=== PATIENT | female | born 1935 | race Caucasian/White ===

== ENCOUNTER 2017-07-25 07:39 | Emergency (ER) | payer OTHER, MEDICAID ==
[2017-07-25 07:49] VITALS: BP 148/79; BMI 25.8
--- NOTE | 2017-07-25 08:28 | DR.GENAD ---
HPI - PCP Primary Care Physician: RAMÓN Armas - Complaint/Symptoms Chief Complaint Doctors Comments: Patient presents with complaint of nausea and burning of lower extremities. She admits to the burning sensations since 2016 she is being treated but the sensation does not go away. She is also [place] [facility] [place] Chief Complaint:: Pt c/o constant burning pain into both legs rated 9/10. Pt also c/o a few day history of nausea with decreased appetite. Denies vomiting. - Source History Provided: Patient - Mode of Arrival Mode of Arrival: Wheelchair - Timing Onset of Chief Complaint: 07/25/17 PMH - PMH Past Medical History: Yes Past Medical History: COPD, Dyslipidemia, Hypertension Past Surgical History: Yes Surgical History: Appendectomy Past Surgical History Comment: back surgery - Family History History of Family Medical Conditions: Yes Family Medical History: Coronary Artery Disease - Social History Does patient currently use any type of tobacco product: Yes Have you used tobacco products in the last 12 months: Yes Type of Tobacco Use: None Does any household member use tobacco: No Alcohol Use: None Do you use any recreational Drugs:: No Lives With: Spouse Lives Where: Home - infectious screening In the last 2 months have you had wt loss of >10#?: NO Have you had fever, night sweats or hemotysis?: No Have you traveled outside the country in the last 6 months?: No Isolation: Standard ROS - Review of Systems Constitutional: negative: Diaphoresis Eyes: No Symptoms Reported, See HPI ENTM: No Symptoms Reported, See HPI Respiratoy: No Symptoms Reported Cardiovascular: No Symptoms Reported Gastrointestinal/Abdominal: No Symptoms Reported Genitourinary: No Symptoms Reported Neurological: No Symptoms Reported Musculoskeletal: No Symptoms Reported Integumentary: No Symptoms Reported Hematologic/Lymphatic: No Symptoms Reported Endocrine: No Symptoms Reported Psychiatric: No Symptoms Reported All Other Systems: Reviewed and Negative PE - Vital Signs Vitals: Temperature 97.6 F Pulse Rate 106 Respiratory Rate 20 Blood Pressure 148/79 O2 Sat by Pulse Oximetry 97 - General General Appearance: Alert, In No Apparent Distress - Head Head Exam: Normal Inspection, Atraumatic - Eyes Eye exam: Normal Appearance, PERRL, EOMI - ENT ENT Exam: Normal Exam External Ear Exam: Normal External Inspection TM/Canal Exam: Bilateral Normal Nose Exam: Normal Nose Exam Mouth Exam: Normal Inspection Throat Exam: Normal Inspection - Neck Neck Exam: Normal Inspection - Chest Chest Inspection: Normal Inspection, Symmetric Chest Wall Rise - Respiratory Respiratory Exam: Normal Lung Sounds Bilat Respiratory Exam: Bilateral Clear to Auscultation - Cardiovascular Cardiovascular Exam: Regular Rate, Normal Rhythm - Abdominal Exam Abdominal Exam: Normal Inspection, Normal Bowel Sounds Abdominal Tenderness: negative: RUQ, RLQ, LUQ, LLQ, Epigastrium, Suprapubic, Diffuse, Mild, Moderate, Severe, Other - Extremities Extremities Exam: Normal Inspection, Full ROM - Back Back Exam: Normal Inspection, Full ROM - Neurologic Neurological Exam: Alert, Oriented X3, CN II-XII Intact - Psychiatric Psychiatric Exam: Normal Affect - Skin Skin Exam: Warm, Dry, Intact Course - Reevaluation 1st: Improved - Education/Counseling Educated On: Treatment, Diagnosis, Needs for Follow Up (Advised to increase neuronton to 600mg per dose) ROR - Labs Reviewed Result Diagrams: 07/25/17 08:50 07/25/17 08:50 Laboratory: WBC 11.3 X10^3/uL (3.6-10.0) H 07/25/17 08:50 RBC 4.13 X10^6/uL (3.5-5.4) 07/25/17 08:50 Hgb 13.0 g/dL (12.0-16.0) 07/25/17 08:50 Hct 38.3 % (36.0-47.0) 07/25/17 08:50 MCV 92.7 fL (80.0-100.0) 07/25/17 08:50 MCH 31.6 pg (27.0-34.0) 07/25/17 08:50 MCHC 34.0 g/dL (33.0-35.0) 07/25/17 08:50 RDW 13.4 % (11.6-16.5) 07/25/17 08:50 Plt Count 341 X10^3/uL (150.0-450.0) 07/25/17 08:50 MPV 8.2 fL (7.4-11.0) 07/25/17 08:50 Neut % (Auto) 75.9 % (42.0-75.0) H 07/25/17 08:50 Lymph % (Auto) 18.3 % (21.0-51.0) L 07/25/17 08:50 [place] % (Auto) 3.7 % (0.0-13.0) 07/25/17 08:50 Eos % (Auto) 1.1 % (0.9-2.9) 07/25/17 08:50 Baso % (Auto) 1.0 % (0.2-1.0) 07/25/17 08:50 Neut # (Auto) 8.6 x10^3/uL (2.2-4.8) H 07/25/17 08:50 Lymph # (Auto) 2.1 X10^3/uL (1.3-2.9) 07/25/17 08:50 [place] # (Auto) 0.4 x10^3/uL (0.3-0.8) 07/25/17 08:50 Eos # (Auto) 0.1 x10^3/uL (0.0-0.2) 07/25/17 08:50 Baso # (Auto) 0.1 X10^3/uL (0.0-0.1) 07/25/17 08:50 Absolute Nucleated RBC 0.0 /100WBC 07/25/17 08:50 Sodium 139 mmol/L (136-145) 07/25/17 08:50 Corrected Sodium 139 mmol/L (136-145) 07/25/17 08:50 Potassium 4.0 mmol/L (3.5-5.1) 07/25/17 08:50 Chloride 105 mmol/L (98-107) 07/25/17 08:50 Carbon Dioxide 27.8 mmol/L (21-32) 07/25/17 08:50 BUN 21 mg/dL (7-18) H 07/25/17 08:50 Creatinine 1.17 mg/dL (0.55-1.02) H 07/25/17 08:50 Est GFR (MDRD) Af Amer 57 (>60) L 07/25/17 08:50 Est GFR (MDRD) Non-Af 47 (>60) L 07/25/17 08:50 Glucose 118 mg/dL (65-99) H 07/25/17 08:50 Calcium 8.6 mg/dL (8.5-10.1) 07/25/17 08:50 - Diagnosis Discharge Problem: Dehydration, mild Peripheral neuropathy Qualifiers: Peripheral neuropathy type: polyneuropathy, other Qualified Code(s): G62.89 - Other specified polyneuropathies - Discharge Plan Condition: Stable - Follow ups/Referrals Follow ups/Referrals: HALEY DONOVAN [Primary Care Provider] - 3 days - Instructions
[2017-07-25] MEDS ORDERED: ZOFRAN INJ 4 MG VIAL IVP ONE (08:29)
[2017-07-25] MEDS ORDERED: LR 1000 ML IV 1,000 ML IV ONE ×2 (08:29→08:31)
[2017-07-25] MEDS ORDERED: ZOFRAN INJ 4 MG VIAL ONE (08:31)
[2017-07-25] MEDS ORDERED: MORPHINE SULFATE INJ 2 MG INJ IVP ONE (08:38)
[2017-07-25] MEDS ORDERED: MORPHINE SULFATE INJ 2 MG INJ ONE (08:39)
[2017-07-25 08:57] LABS: BASOPHILS # (AUTO) 0.1 X10^3/uL (0.0-0.1); EOSINOPHILS # (AUTO) 0.1 x10^3/uL (0.0-0.2); EOSINOPHILS % (AUTO) 1.1 % (0.9-2.9); HEMATOCRIT 38.3 % (36.0-47.0); LYMPHOCYTES # (AUTO) 2.1 X10^3/uL (1.3-2.9); LYMPHOCYTES % (AUTO) 18.3 % (21.0-51.0); MEAN CORPUSCULAR HEMOGLOBIN 31.6 pg (27.0-34.0); MEAN CORPUSCULAR VOLUME 92.7 fL (80.0-100.0); MEAN PLATELET VOLUME 8.2 fL (7.4-11.0); MONOCYTES # (AUTO) 0.4 x10^3/uL (0.3-0.8); MONOCYTES % (AUTO) 3.7 % (0.0-13.0); NEUTROPHILS # (AUTO) 8.6 x10^3/uL (2.2-4.8); NEUTROPHILS % (AUTO) 75.9 % (42.0-75.0); PLATELET COUNT 341 X10^3/uL (150.0-450.0); RED BLOOD COUNT 4.13 X10^6/uL (3.5-5.4); RED CELL DISTRIBUTION WIDTH 13.4 % (11.6-16.5); WHITE BLOOD COUNT 11.3 X10^3/uL (3.6-10.0)
[2017-07-25 09:21] LABS: CALCIUM 8.6 mg/dL (8.5-10.1); CARBON DIOXIDE 27.8 mmol/L (21-32); CREATININE 1.17 mg/dL (0.55-1.02)
[2017-07-25 10:03] LABS: BILIRUBIN,URINE NEGATIVE (NEGATIVE); BLOOD/HEMOGLOBIN,URINE NEGATIVE (NEGATIVE); GLUCOSE, URINE NEGATIVE (NEGATIVE); KETONES,URINE NEGATIVE (NEGATIVE); LEUKOCYTE ESTERASE ,URINE 1+ (NEGATIVE); NITRITES,URINE POSITIVE (NEGATIVE); PH,URINE 6.5 (5.0 - 8.0); PROTEIN,URINE NEGATIVE (NEGATIVE); UROBILINOGEN,URINE NORMAL (NORMAL)
[2017-07-25 10:12] LABS: APPEARANCE,URINE HAZY (CLEAR); COLOR,URINE YELLOW (YELLOW)
[2017-07-25 10:13] LABS: BACTERIA,URINE 4+ /HPF (NEGATIVE); RBC,URINE NONE SEEN /HPF (NONE SEEN); SQUAMOUS EPITHELIAL CELL,UR MODERATE /HPF (NEGATIVE)
== END 2017-07-25 10:20 | disposition home or self-care (01) ==
LOC: ER 07:57
DX: E86.0 Dehydration (principal); G62.89 Other specified polyneuropathies
CPT/HCPCS: 36415; 80048; 81001; 85025; 96365; 96374; 96375; 99283; A4222; J2270; J2405; J7120

== ENCOUNTER 2023-04-18 07:56 | Inpatient (IN) ==
[2023-04-18 08:11] VITALS: BMI 24.2
--- NOTE | 2023-04-18 08:22 | DR.URIAD ---
HPI Time Seen Time Seen by Provider: 04/18/23 08:22 PCP Primary Care Physician: Catie Castillo Chief Complaint Doctors Comments: Patient has had a cough since 04/12/2023.She saw her Pcp on the and was told that she has pneumonia and was given lev aquin 500mg and prednisone taper. Patient presents today because her cough persists. Patient has a h/o COPD, she did not take her htn meds this am. Patient has been coughing so much that she has pleuritic chest pain. Patient states that she is also has pain in her abd because of the cough and feels weak. Patient denies: fever,n,v,diarrhea,sob. Chief Complaint:: Patient states that she has had a cough since the of this month. She went to her primary on the and they prescribed her pneumonia and steroids. She states that they told her that she had pneumonia but did not do any xrays. They also swabbed her for covid, which was negative. She states that she has been taking the prescribed medication, but the cough has persisted. She states that last night she coughed all night but was unable to cough anything up. She is sore in her abdomen and sides due to coughing. COVID-19 Coronavirus risk:travel/contact w/high risk person: Yes Has patient experienced Coronavirus symptoms: Yes Coronavirus symptoms experienced: Coughing Source History Provided: Patient Mode of Arrival Mode of Arrival: Wheelchair Timing Onset of Chief Complaint: 04/12/23 PMH PMH Past Medical History: Yes Past Medical History: COPD, Dyslipidemia and Hypertension Past Surgical History: Yes Surgical History: Appendectomy, , Cholecystectomy and Hysterectomy Family History History of Family Medical Conditions: Yes Family Medical History: Coronary Artery Disease Social History Does patient currently use any type of tobacco product: No Have you used tobacco products in the last 12 months: No Type of Tobacco Use: None Does any household member use tobacco: No Alcohol Use: None Do you use any recreational Drugs:: No Lives With: Family Lives Where: Home Travel Risk Coronavirus risk:travel/contact w/high risk person: Yes Has patient experienced Coronavirus symptoms: Yes Coronavirus symptoms experienced: Coughing Infectious screening In the last 2 months have you had wt loss of >10#?: NO Have you had fever, night sweats or hemotysis?: No Have you traveled outside the country in the last 6 months?: No Isolation: Droplet ROS Review of Systems Constitutional: Malaise and Weakness Eyes: No Symptoms Reported ENTM: No Symptoms Reported Respiratoy: Dry Cough; negative Short of Breath Cardiovascular: No Symptoms Reported Gastrointestinal/Abdominal: No Symptoms Reported Genitourinary: No Symptoms Reported Neurological: No Symptoms Reported Musculoskeletal: No Symptoms Reported Integumentary: No Symptoms Reported Hematologic/Lymphatic: No Symptoms Reported Endocrine: No Symptoms Reported Psychiatric: No Symptoms Reported All Other Systems: Reviewed and Negative PE Vital Signs Vitals: Vital Signs Temperature 97.6 F Pulse Rate 83 Pulse Rate 72 Pulse Rate 70 Pulse Rate 83 Pulse Rate 75 Pulse Rate 74 Pulse Rate 81 Pulse Rate 76 Pulse Rate 74 Pulse Rate 74 Pulse Rate 70 Pulse Rate 72 Pulse Rate 78 Pulse Rate 80 Pulse Rate 81 Pulse Rate 76 Pulse Rate 118 Pulse Rate 81 Pulse Rate 77 Pulse Rate 80 Pulse Rate 76 Pulse Rate 75 Pulse Rate 101 Pulse Rate 93 Pulse Rate 92 Pulse Rate 106 Pulse Rate 134 Pulse Rate 114 Pulse Rate 123 Pulse Rate 80 Respiratory Rate 17 Respiratory Rate 20 Respiratory Rate 27 Respiratory Rate 16 Respiratory Rate 16 Respiratory Rate 17 Respiratory Rate 29 Respiratory Rate 19 Respiratory Rate 19 Respiratory Rate 17 Respiratory Rate 15 Respiratory Rate 15 Respiratory Rate 17 Respiratory Rate 26 Respiratory Rate 22 Respiratory Rate 17 Respiratory Rate 21 Respiratory Rate 16 Respiratory Rate 18 Respiratory Rate 21 Respiratory Rate 20 Respiratory Rate 15 Respiratory Rate 19 Respiratory Rate 15 Respiratory Rate 13 Respiratory Rate 17 Respiratory Rate 17 Respiratory Rate 19 Respiratory Rate 19 Blood Pressure 147/84 Blood Pressure 164/70 Blood Pressure 171/76 Blood Pressure 174/72 Blood Pressure 167/74 Blood Pressure 132/71 Blood Pressure 146/74 Blood Pressure 140/64 Blood Pressure 149/70 Blood Pressure 151/97 Blood Pressure 145/68 Blood Pressure 157/95 Blood Pressure 169/73 Blood Pressure 151/95 Blood Pressure 157/73 O2 Sat by Pulse Oximetry 96 O2 Sat by Pulse Oximetry 95 O2 Sat by Pulse Oximetry 94 O2 Sat by Pulse Oximetry 95 O2 Sat by Pulse Oximetry 97 O2 Sat by Pulse Oximetry 97 O2 Sat by Pulse Oximetry 98 O2 Sat by Pulse Oximetry 97 O2 Sat by Pulse Oximetry 96 O2 Sat by Pulse Oximetry 96 O2 Sat by Pulse Oximetry 96 O2 Sat by Pulse Oximetry 97 O2 Sat by Pulse Oximetry 96 O2 Sat by Pulse Oximetry 95 O2 Sat by Pulse Oximetry 96 O2 Sat by Pulse Oximetry 95 O2 Sat by Pulse Oximetry 94 O2 Sat by Pulse Oximetry 96 O2 Sat by Pulse Oximetry 97 O2 Sat by Pulse Oximetry 97 O2 Sat by Pulse Oximetry 95 O2 Sat by Pulse Oximetry 95 O2 Sat by Pulse Oximetry 95 O2 Sat by Pulse Oximetry 96 O2 Sat by Pulse Oximetry 94 O2 Sat by Pulse Oximetry 96 General Limitations: No Limitations General Appearance: Alert and In No Apparent Distress Head Head Exam: Normal Inspection Eyes Eye exam: Normal Appearance ENT ENT Exam: Normal Exam External Ear Exam: Normal External Inspection TM/Canal Exam: Bilateral: Normal Nose Exam: Normal Nose Exam Nasal Speculum Exam: Bilateral: Normal Mouth Exam: Normal Inspection Throat Exam: Normal Inspection Neck Neck Exam: Normal Inspection Chest Chest Inspection: Normal Inspection Respiratory Respiratory Exam: Normal Lung Sounds Bilat Respiratory Exam: Bilateral: Clear to Auscultation Cardiovascular Cardiovascular Exam: Regular Rate and Normal Rhythm Abdominal Exam Abdominal Exam: Normal Inspection, Normal Bowel Sounds and Soft Extremeties Extremities Exam: Normal Inspection Back Back Exam: Normal Inspection Neurologic Neurological Exam: Alert and Oriented X3 Psychiatric Psychiatric Exam: Normal Affect and Normal Mood Skin Skin Exam: Warm, Dry, Intact and Normal Color MDM Differential Diagnosis Differential Diagnosis: Influenza A, Influenza B, Pneumonia and URI (Covid- 19,RSV,GA,CHF,PE,electrolyte disorder) COURSE Treatment Treatment: Patient was brought to a monitored . IV access was initiated and labs /test were ordered. Patient's labs revealed a magnesium of 1.4 and patient was given Magnesium 2 g iv , K 2.8 and patient was given 10meq iv. Patient was told that she had pneumonia and has failed outpatient treatment with levaquin. Her Wbc is 22 and the CTA chest revealed Possible RLL inflammation.She received zosyn 4.5mg iv. Patient had a nml lactic acid 1.7 and a mildly elevated crp 5.3. D-dimer was pos but patient did not have a PE. Patient had a labile hr on arrival in ED. She was given metoprolol 5mg iv and a NS 500ml bolus iv and her hr has been stable in the 70's.Patient 's ekg #1 and #2 did not reveal acute ischemic changes. Her troponin #1 and #2 were minimally elevated 62.8/67.1 respectively. Patient was given amlodipine 5mg po ,hctz 12.5mg po,and olmesartan 20mg po for her BP. Discussed case with Dr Goldberg. Patient has been accepted to Dr Goldberg's service for further evaluation. ROR Labs Reviewed 04/18/23 08:35 04/18/23 08:35 Laboratory: WBC 22.7 X10^3/uL (3.6-10.0) H 04/18/23 08:35 RBC 4.09 X10^6/uL (3.5-5.4) 04/18/23 08:35 Hgb 12.3 g/dL (12.0-16.0) 04/18/23 08:35 Hct 36.8 % (36.0-47.0) 04/18/23 08:35 MCV 90.1 fL (80.0-100.0) 04/18/23 08:35 MCH 30.1 pg (27.0-34.0) 04/18/23 08:35 MCHC 33.4 g/dL (33.0-35.0) 04/18/23 08:35 RDW 13.2 % (11.6-16.5) 04/18/23 08:35 Plt Count 332 X10^3/uL (150.0-450.0) 04/18/23 08:35 Plt Count Comment Adequate (ADEQUATE) 04/18/23 08:35 MPV 7.8 fL (7.4-11.0) 04/18/23 08:35 Neut % (Auto) 79.7 % (42.0-75.0) H 04/18/23 08:35 Lymph % (Auto) 15.1 % (21.0-51.0) L 04/18/23 08:35 [place] % (Auto) 4.8 % (0.0-13.0) 04/18/23 08:35 Eos % (Auto) 0.2 % (0.9-2.9) L 04/18/23 08:35 Baso % (Auto) 0.2 % (0.2-1.0) 04/18/23 08:35 Neut # (Auto) 18.1 x10^3/uL (2.2-4.8) H 04/18/23 08:35 Lymph # (Auto) 3.4 X10^3/uL (1.3-2.9) H 04/18/23 08:35 [place] # (Auto) 1.1 x10^3/uL (0.3-0.8) H 04/18/23 08:35 Eos # (Auto) 0.0 x10^3/uL (0.0-0.2) 04/18/23 08:35 Baso # (Auto) 0.0 X10^3/uL (0.0-0.1) 04/18/23 08:35 Absolute Nucleated RBC 0.0 /100WBC 04/18/23 08:35 Total Counted 100 04/18/23 08:35 Neutrophils % (Manual) 80 % (39-76) H 04/18/23 08:35 Lymphocytes % (Manual) 17 % (13-43) 04/18/23 08:35 Monocytes % (Manual) 3 % (4-9) L 04/18/23 08:35 Plt Morphology Comment Normal (NORMAL) 04/18/23 08:35 RBC Morphology Normal (NORMAL) 04/18/23 08:35 D-Dimer 2.46 ug/ml (0.0-0.57) H 04/18/23 08:35 Sodium 145 mmol/L (136-145) 04/18/23 08:35 Corrected Sodium TNP 04/18/23 08:35 Potassium 2.8 mmol/L (3.5-5.1) L* 04/18/23 08:35 Chloride 104 mmol/L (98-107) 04/18/23 08:35 Carbon Dioxide 28.2 mmol/L (21-32) 04/18/23 08:35 BUN 23 mg/dL (7-18) H 04/18/23 08:35 Creatinine 1.16 mg/dL (0.55-1.02) H 04/18/23 08:35 Est GFR (MDRD) Af Amer 57 (>60) L 04/18/23 08:35 Est GFR (MDRD) Non-Af 47 (>60) L 04/18/23 08:35 Glucose 108 mg/dL (65-99) H 04/18/23 08:35 Lactic Acid 1.7 mmol/L (0.4-2.0) 04/18/23 08:35 Calcium 9.0 mg/dL (8.5-10.1) 04/18/23 08:35 Corrected Calcium 9.9 mg/dL (8.5-10.1) 04/18/23 08:35 Magnesium 1.4 mg/dL (2.0-2.9) L 04/18/23 08:35 Total Bilirubin 0.30 mg/dL (0.2-1.0) 04/18/23 08:35 AST 19 Units/L (15-37) 04/18/23 08:35 ALT 16 Units/L (12-78) 04/18/23 08:35 Alkaline Phosphatase 68 Units/L (46-116) 04/18/23 08:35 Creatine Kinase 76 Units/L (26-192) 04/18/23 08:35 Troponin I High Sens 67.1 ng/L (4.0-60.0) H* 04/18/23 10:58 C-Reactive Protein 5.30 mg/L (0-3.0) H 04/18/23 08:35 B-Natriuretic Peptide 400 pg/mL (0-79) H 04/18/23 08:35 Total Protein 6.5 g/dL (6.4-8.2) 04/18/23 08:35 Albumin 2.9 g/dL (3.4-5.0) L 04/18/23 08:35 Globulin 3.6 g/dL (2.5-4.5) 04/18/23 08:35 Albumin/Globulin Ratio 0.8 Ratio (1.1-2.1) L 04/18/23 08:35 Free T4 1.13 ng/dL (0.76-1.46) 04/18/23 08:35 TSH 3rd Generation 0.642 uIU/mL (0.358-3.74) 04/18/23 08:35 Specimen Type Clean catch urine 04/18/23 09:15 Urine Color [place] (YELLOW) 04/18/23 09:15 Urine Appearance Clear (CLEAR) 04/18/23 09:15 Urine pH Cancelled 04/18/23 09:15 Ur Specific [place] Cancelled 04/18/23 09:15 Urine Protein Cancelled 04/18/23 09:15 Urine Glucose (UA) Cancelled 04/18/23 09:15 Urine Ketones Cancelled 04/18/23 09:15 Urine Blood Cancelled 04/18/23 09:15 Urine Nitrite Cancelled 04/18/23 09:15 Urine Bilirubin Cancelled 04/18/23 09:15 Urine Urobilinogen Cancelled 04/18/23 09:15 Ur Leukocyte Esterase Cancelled 04/18/23 09:15 Urine RBC 0-2 /HPF (0-3) 04/18/23 09:15 Urine WBC 3-5 /HPF (0-5) 04/18/23 09:15 Ur Squamous Epith Cells Few /HPF (NEGATIVE) 04/18/23 09:15 Amorphous Sediment 1+ /HPF (NEGATIVE) 04/18/23 09:15 Urine Bacteria 1+ /HPF (NEGATIVE) 04/18/23 09:15 Urine Mucus Rare /HPF (NEGATIVE) 04/18/23 09:15 Ur Culture Indicated? No/not indicated 04/18/23 09:15 SARS-CoV-2 (PCR) Negative (NEGATIVE) 04/18/23 08:29 Influenza Type A (PCR) Negative (NEGATIVE) 04/18/23 08:29 Influenza Type B (PCR) Negative (NEGATIVE) 04/18/23 08:29 RSV (PCR) Negative (NEGATIVE) 04/18/23 08:29 Opioid Opioid Risk Tool Age (Harley box if 16-45): No History of Preadolescent Sexual Abuse: No Total: 0 Total Score Risk Category: Low Risk Copyright: Edmund LORA predicting aberrant behaviors Discharge Plan Diagnosis Discharge Problem: Acute exacerbation of chronic obstructive pulmonary disease, Pneumonia, Malignant hypertension Discharge Plan Patient Disposition: 09 ADMITTED INPATIENT Condition: Stable Prescriptions: No Action levothyroxine 25 MCG tablet 25 mcg PO DAILY Patient Comments: 1 tab po every other day alendronate 70 mg tablet 70 mg PO QWEEK amlodipine 5 mg tablet 5 mg PO QDAY omeprazole 40 mg capsule,delayed release(DR/EC) 40 mg PO BID gabapentin 800 mg tablet 800 mg PO QID hydrochlorothiazide 12.5 mg capsule 12.5 mg PO QDAY estradiol 2 mg tablet 2 mg PO QDAY albuterol sulfate 90 mcg/actuation HFA aerosol inhaler 90 mcg inhalation Q6H PRN buspirone 15 mg tablet 15 mg PO BID olmesartan 20 mg tablet 20 mg PO QDAY rosuvastatin 20 mg tablet 20 mg PO QPM Trelegy Ellipta 100-62.5-25 mcg blister with device 1 puff inhalation QDAY levofloxacin 500 mg tablet 500 mg PO QDAY Rx Instructions: x 10 days started on 04/14/23 methylprednisolone 4 mg tablets,dose pack See Rx Instructions .ROUTE .COMPLEX Rx Instructions: take as directed x 5 days - started on 04/14/23 roflumilast 500 mcg tablet 500 mcg PO QDAY Health Concerns: Post Hospitalization: new medications and changes needed to prevent readmission or further decline. Pt educated and given instructions on all concerns. Plan of Treatment: Continue with present treatment and follow up plan. Pt is to keep follow up appointment as instructed and take medications as ordered. Orders to Discharge Patient Discharge Orders: Transfer (Routine); Ordered 04/18/23 Ordered By: Aishwarya Min Follow ups/Referrals Follow ups/Referrals: HALEY DONOVAN [Primary Care Provider] - 3 days Instructions Stand Alone Forms: Post Hospital Follow Up Care
[2023-04-18] MEDS ORDERED: NS 500 ML IV 500 ML IV ONE (08:32)
[2023-04-18] MEDS: NS 500 ML IV 500 ML IV ONE (08:34)
[2023-04-18] MEDS: CARDIZEM INJ 50 MG VIAL IVP ONE (08:34)
[2023-04-18] MEDS ORDERED: LOPRESSOR INJ 5 MG AMP ONE (08:51)
[2023-04-18] MEDS: LOPRESSOR INJ 5 MG AMP IVP ONE (09:00)
--- NOTE | 2023-04-18 09:05 | EKG ---
Test Reason : tachycardia Blood Pressure : */* mmHG Vent. Rate : 109 BPM Atrial Rate : 109 BPM P-R Int : 124 ms QRS Dur : 76 ms QT Int : 342 ms P-R-T Axes : 32 -15 50 degrees QTc Int : 460 ms Sinus tachycardia with premature atrial complexes or fusion complexes Septal infarct , age undetermined Abnormal ECG No previous ECGs available Confirmed by Jamar Cole ([id number]) on 04/19/2023 12:37:21 PM Referred By: Confirmed By: Jamar Cole
[2023-04-18 09:13] LABS: MEAN CORPUSCULAR VOLUME 90.1 fL (80.0-100.0); MEAN PLATELET VOLUME 7.8 fL (7.4-11.0)
[2023-04-18 09:28] LABS: BASOPHILS % (AUTO) 0.2 % (0.2-1.0); EOSINOPHILS % (AUTO) 0.2 % (0.9-2.9); HEMATOCRIT 36.8 % (36.0-47.0); HEMOGLOBIN 12.3 g/dL (12.0-16.0); LYMPHOCYTES # (AUTO) 3.4 X10^3/uL (1.3-2.9); LYMPHOCYTES % (AUTO) 15.1 % (21.0-51.0); MEAN CORPUSCULAR HEMOGLOBIN 30.1 pg (27.0-34.0); MEAN CORPUSCULAR HGB CONC 33.4 g/dL (33.0-35.0); MONOCYTES # (AUTO) 1.1 x10^3/uL (0.3-0.8); MONOCYTES % (AUTO) 4.8 % (0.0-13.0); NEUTROPHILS # (AUTO) 18.1 x10^3/uL (2.2-4.8); NEUTROPHILS % (AUTO) 79.7 % (42.0-75.0); PLATELET COUNT 332 X10^3/uL (150.0-450.0); RED BLOOD COUNT 4.09 X10^6/uL (3.5-5.4); RED CELL DISTRIBUTION WIDTH 13.2 % (11.6-16.5); WHITE BLOOD COUNT 22.7 X10^3/uL (3.6-10.0)
[2023-04-18 09:37] LABS: ALANINE AMINOTRANSFERASE 16 Units/L (12-78); ALBUMIN 2.9 g/dL (3.4-5.0); ALKALINE PHOSPHATASE 68 Units/L (46-116); ASPARTATE AMINO TRANSFERASE 19 Units/L (15-37); BLOOD UREA NITROGEN 23 mg/dL (7-18); CARBON DIOXIDE 28.2 mmol/L (21-32); CHLORIDE 104 mmol/L (98-107); COR CA(FOR HYPOALB) 9.9 mg/dL (8.5-10.1); CREATINE KINASE 76 Units/L (26-192); CREATININE 1.16 mg/dL (0.55-1.02); GLUCOSE 108 mg/dL (65-99); MAGNESIUM 1.4 mg/dL (2.0-2.9); SODIUM 145 mmol/L (136-145); TOTAL PROTEIN 6.5 g/dL (6.4-8.2); eGFR NON BLACK RACES 47 (>60)
[2023-04-18 09:40] LABS: APPEARANCE,URINE CLEAR (CLEAR); BACTERIA,URINE 1+ /HPF (NEGATIVE); COLOR,URINE ORANGE (YELLOW); RBC,URINE 0-2 /HPF (0-3); SQUAMOUS EPITHELIAL CELL,UR FEW /HPF (NEGATIVE)
[2023-04-18 09:41] LABS: FREE T4 (FREE THYROXINE) 1.13 ng/dL (0.76-1.46); TSH (3RD GENERATION) 0.642 uIU/mL (0.358-3.74)
[2023-04-18 09:45] LABS: POTASSIUM 2.8 mmol/L (3.5-5.1)
--- NOTE | 2023-04-18 09:47 | RAD ---
EXAM: Portable AP chest HISTORY: Cough COMPARISON: 12/25/2020 FINDINGS: Heart size within normal limits with no definite pulmonary infiltrate, pneumonia or pleural fluid. The retrocardiac left base and diaphragm are partly obscured by the heart. IMPRESSION: No definite abnormality. If symptoms persist, recommend standard PA and lateral views to better mauricio luate the lower lobes. THIS IS AN ELECTRONICALLY VERIFIED FINAL REPORT 04/18/2023 9:44 AM - Electronically signed by Guillaume Nicholas MD
[2023-04-18 09:50] LABS: PLATELET MORPHOLOGY COMMENT NORMAL (NORMAL)
[2023-04-18] MEDS ORDERED: NS 100 ML IV 100 ML ONE ×2 (09:57→21:07)
[2023-04-18] MEDS ORDERED: ZOSYN VIAL 4.5 GRAMS IV ONE (09:57)
[2023-04-18] MEDS ORDERED: K-RIDER 10 MEQ/100 ML WATER 10 MEQ/100 ML BAG IV ONE (09:57)
[2023-04-18] MEDS ORDERED: MAGNESIUM SULFATE 1 GRAM/100 mL PREMIX 1 G/100 ML BAG IV ONE (09:57)
[2023-04-18] MEDS ORDERED: NS 1,000 ML IV 1,000 ML ONE (10:01)
[2023-04-18] MEDS: K-RIDER 10 MEQ/100 ML WATER 10 MEQ/100 ML BAG IV SCH (10:14)
[2023-04-18] MEDS: ZOSYN VIAL 4.5 GRAMS 4.5 G in NS 100 ML IV 100 ML IV SCH (10:14)
[2023-04-18] MEDS: MAGNESIUM SULFATE 1 GRAM/100 mL PREMIX 1 G/100 ML BAG IV SCH (10:15)
[2023-04-18] MEDS: NS 1,000 ML IV 1,000 ML IV ONE (10:15)
--- NOTE | 2023-04-18 11:20 | EKG ---
Test Reason : palpitatons Blood Pressure : */* mmHG Vent. Rate : 78 BPM Atrial Rate : 78 BPM P-R Int : 130 ms QRS Dur : 76 ms QT Int : 358 ms P-R-T Axes : 51 -4 61 degrees QTc Int : 408 ms Sinus rhythm with occasional premature ventricular complexes Otherwise normal ECG When compared with ECG of 18-APR-2023 08:25, (Unconfirmed) fusion complexes are no longer present Criteria for Septal infarct are no longer present QT has shortened Confirmed by Jamar Cole ([id number]) on 04/19/2023 12:36:57 PM Referred By: Confirmed By: Jamar Cole
--- NOTE | 2023-04-18 13:00 | CT ---
EXAM:CTA chestHISTORY:Cough. Evaluate for infection versus PE.COMPARISON:Chest one view performed today.TECHNIQUE:Multiple axial images of the chest were obtained from the thoracic inlet to the upper abdomen after the administration of IV contrast. 3D reconstructions utilizing axial MIPS imaging was performed and reviewed. Dose reduction techniques including Automated Exposure Control (AEC) and adjustment of mA and kV were utilized.FINDINGS:PULMONARY ARTERIES: No evidence of pulmonary emboli.THORACIC AORTA: Normal in caliber and moderately calcified.HEART: Moderate coronary artery calcification. No other significant abnormality.MEDIASTINUM: Nonspecific scattered shotty mediastinal lymph nodes. No other significant abnormality.LUNGS: Biapical scarring with left basilar atelectasis versus scarring. No other significant abnormality.UPPER ABDOMEN: No acute findings. Moderate atherosclerosis with bilateral renal cysts.BONES: No significant abnormality.ADDITIONAL FINDINGS:None.IMPRESSION:1. No CT evidence of pulmonary emboli.2. Evidence of an acute infectious process involving the chest.3. Likely reactive nonspecific shotty mediastinal lymph nodes with additional chronic changes as above.THIS IS AN ELECTRONICALLY VERIFIED FINAL REPORT04/18/2023 12:56 PM - Electronically signed by Wayne Ghotra MD
[2023-04-18] MEDS ORDERED: NORVASC TAB 5 MG ONE (14:03)
[2023-04-18] MEDS: NORVASC TAB 5 MG PO ONE (14:10)
[2023-04-18] MEDS: MAGNESIUM SULFATE 1 GRAM/100 mL PREMIX 1 G/100 ML BAG IV ONE (16:01)
[2023-04-18] MEDS: PATIENT'S HOME MEDICATION (Gabapentin 800 mg tablet) PO SCH (19:15)
[2023-04-18] MEDS: LOVENOX INJ 40 MG SYR SC SCH (19:18)
[2023-04-18] MEDS: Atrovent NEB TX 0.02% NEB SCH (20:23)
[2023-04-18] MEDS: BUSPAR PO SCH (20:30)
[2023-04-18] MEDS: CRESTOR TAB 10 MG PO SCH (20:31)
[2023-04-18] MEDS: NEURONTIN CAP 300 MG PO SCH (20:31)
[2023-04-18] MEDS: PriLOSEC PO SCH (20:32)
[2023-04-18] MEDS: MAG-OX TAB PO SCH (20:42)
[2023-04-18] MEDS: K-DUR TAB 20 MEQ PO SCH (20:42)
[2023-04-18] MEDS: MICRO K EXTEN CAP 10 MEQ PO SCH (21:15)
[2023-04-18] MEDS: ZOSYN VIAL 3.375 GRAMS 3.375 G in NS 100 ML IV 100 ML IV SCH (21:16)
[2023-04-19 05:03] LABS: BASOPHILS # (AUTO) 0.1 X10^3/uL (0.0-0.1); BASOPHILS % (AUTO) 0.4 % (0.2-1.0); EOSINOPHILS # (AUTO) 0.2 x10^3/uL (0.0-0.2); EOSINOPHILS % (AUTO) 1.7 % (0.9-2.9); HEMATOCRIT 34.9 % (36.0-47.0); HEMOGLOBIN 11.7 g/dL (12.0-16.0); LYMPHOCYTES # (AUTO) 1.8 X10^3/uL (1.3-2.9); LYMPHOCYTES % (AUTO) 13.7 % (21.0-51.0); MEAN CORPUSCULAR HEMOGLOBIN 30.1 pg (27.0-34.0); MEAN CORPUSCULAR HGB CONC 33.6 g/dL (33.0-35.0); MEAN CORPUSCULAR VOLUME 89.7 fL (80.0-100.0); MEAN PLATELET VOLUME 7.9 fL (7.4-11.0); MONOCYTES # (AUTO) 0.7 x10^3/uL (0.3-0.8); MONOCYTES % (AUTO) 5.2 % (0.0-13.0); NEUTROPHILS # (AUTO) 10.3 x10^3/uL (2.2-4.8); PLATELET COUNT 314 X10^3/uL (150.0-450.0); RED BLOOD COUNT 3.89 X10^6/uL (3.5-5.4); RED CELL DISTRIBUTION WIDTH 13.3 % (11.6-16.5); WHITE BLOOD COUNT 13.1 X10^3/uL (3.6-10.0)
[2023-04-19 05:18] LABS: ALANINE AMINOTRANSFERASE 14 Units/L (12-78); ALBUMIN 2.6 g/dL (3.4-5.0); ALKALINE PHOSPHATASE 65 Units/L (46-116); ASPARTATE AMINO TRANSFERASE 15 Units/L (15-37); BLOOD UREA NITROGEN 15 mg/dL (7-18); CALCIUM 8.1 mg/dL (8.5-10.1); CARBON DIOXIDE 27.1 mmol/L (21-32); CHLORIDE 106 mmol/L (98-107); COR CA(FOR HYPOALB) 9.2 mg/dL (8.5-10.1); CREATININE 0.94 mg/dL (0.55-1.02); GLUCOSE 89 mg/dL (65-99); POTASSIUM 3.7 mmol/L (3.5-5.1); SODIUM 143 mmol/L (136-145); TOTAL PROTEIN 5.9 g/dL (6.4-8.2); eGFR NON BLACK RACES 60 (>60)
[2023-04-19] MEDS: PROVENTIL NEB TX 0.083% 2.5MG/ 3ML NEB SCH (05:25)
--- NOTE | 2023-04-19 06:17 | RAD ---
EXAM:CHEST, 1 VIEWHISTORY:SOB;COMPARISON:Prior study or studies were utilized for comparison during interpretation with the most relevant dated 04/18/2023TECHNIQUE:CHEST, 1 VIEWFINDINGS:Chest:Lines and tubes: Cardiac leads overlie the chest.Mediastinum: Cardiac and mediastinal shadow is within normal limits for size and contour.Pulmonary vessels: No pulmonary vascular congestion.Lung patel: No suspicious airspace opacity.Pleura: No effusion. No pneumothorax.Bones and soft tissues: No acute osseous or soft tissue abnormality.IMPRESSION:1. No acute cardiopulmonary abnormalityTHIS IS AN ELECTRONICALLY VERIFIED FINAL REPORT04/19/2023 6:15 AM - Electronically signed by Mateo Vo MD
[2023-04-19] MEDS ORDERED: CONSULT PHARMACY - POTASSIUM & MAGNESIUM XX SCH (07:00)
[2023-04-19] MEDS ORDERED: HYDROCHLOROTHIAZIDE 12.5 MG CAP PO SCH (09:00)
[2023-04-19] MEDS ORDERED: OLMESARTAN 20 MG PO SCH (09:00)
[2023-04-19] MEDS: BENICAR PO SCH (09:57)
[2023-04-19] MEDS: LEVAQUIN PREMIX IV 500 MG 500 MG/100 ML BAG IV SCH (09:57)
[2023-04-19] MEDS: SYNTHROID 25 mcg TAB PO SCH (09:59)
[2023-04-19] MEDS: K-DUR TAB 20 MEQ PO SCH (09:59)
[2023-04-19] MEDS: ESTRACE PO SCH (10:00)
[2023-04-19] MEDS: NORVASC TAB 5 MG PO SCH (10:06)
[2023-04-19] MEDS: DALIRESP PO SCH (10:06)
[2023-04-19] MEDS: HYDROCHLOROTHIAZIDE 12.5 MG CAP PO SCH (10:10)
[2023-04-19] MEDS: PULMICORT NEB TX 0.5 MG NEB SCH (10:28)
--- NOTE | 2023-04-19 14:52 | DR.H&P ---
H&P - History & Physical for Day of: H&P Date: 04/18/23 - Chief Complaint Chief Complaint: COUGH, SHORTNESS OF BREATH, WEAKNESS - History of Present Illness History of Present Illness: IS A 88 YEAR OLD PATIENT OF . SHE PRESENTED TO THE ER WITH COMPLAINTS OF COUGH, SHORTNESS OF BREATH, AND WEAKNESS. PATIENT REPORTS THAT SHE HAS BEEN TAKING LEVAQUIN 500MG DAILY AND PREDNISONE TAPER FOR TREATMENT OF PNEUMONIA. SHE DENIES IMPROVEMENT IN SYMPTOMS DESPITE COMPLIANCE WITH MEDS. ADDITIONALLY, SHE COMPLAINS OF ABDOMINAL PAIN AND FLANK PAIN DUE TO COUGHING ALL NIGHT. SHE REPORTS THAT COUGH HAS BEEN NON- PRODUCTIVE. HER MEDICAL HX INCLUDES: COPD, DYSLIPIDEMIA, HTN, APPENDECTOMY, C- SECTION, CHOLECYSTECTOMY, HYSTERECTOMY. ON ARRIVAL TO THE HOSPITAL, VITALS WERE: 97.6-80-19-96%-157/73. LABS WERE OBTAINED. WBC 22.7, RBC 4.09, HGB 12.3, HCT 36.8, PLT COUNT 332, D-DIMER 2.46, SODIUM 145, POTASSIUM 2.8, BUN 23, CREATININE 1.16, GLUCOSE 108, LACTIC ACID 1.7, MAGNESIUM 1.4, TOTLA BILI 0.30, AST 19, ALT 16, ALK PHOS 68, CREATINE KINASE 76, TROPONIN 62.8, CRP 5.30, BNP 400, TOTAL PROTEIN 6.5, ALBUMIN 2.9. A URINALYSIS WAS OBTAINED AND REVEALED: WBC 3-5, RBC 0-2, BACTERIA 1+. COVID, INFLUENZA, AND RSV NEGATIVE. RESPIRATORY VIRAL PANEL PENDING. BLOOD CULTURES WERE SET UP. EKG WAS OBTAINED AND REVEALED: SINUS TACHYCARDIA WITH PREMATURE ATRIAL COMPLEXES. HR 109 BPM. A CHEST XRAY WAS OBTAINED AND REVEALED: No definite abnormality. If symptoms persist, recommend standard PA and lateral views to better evaluate the lower lobes. A CHEST CTA WAS OBTAINED AND REVEALED: 1.No CT evidence of pulmonary emboli. 2. Evidence of an acute infectious process involving the chest. 3. Likely reactive nonspecific shotty mediastinal lymph nodes. WHILE IN THE ER, SHE WAS NOTED TO GO INTO ATRIAL FIBRILLATION WITH HR 115-160. HE WAS GIVEN METOPROLOL 5MG IV X 1 DOSE. IN THE ER, SHE WAS ALSO GIVEN A NORMAL SALINE BOLUS, LOPRESSOR 5MG IV X 1, NORVASC 5MG PO X 1, POTASSIUM 20MEQ PO X 1, AND MAGNESIUM 800MG PO X 2 DOSES. SHE WAS ADMITTED TO THE HOSPITAL INPATIENT STATUS FOR FURTHER EVALUATION AND TREATMENT OF COPD EXACERBATION, PNEUMONIA, MALIGNANT HTN. ON ADMISSION, SHE WAS STARTED ON LEVAQUIN 500MG IV DAILY, ZOSYN 3.375 IV TID, LOVENOX 40MG SC DAILY, ALBUTEROL NEBS Q6H, PULMICORT NEBS BID, POTASSIUM AND MAGNESIUM REPLACEMENT. HER HOME MEDICATIONS OF NORVASC, BUSPAR, ESTRACE, NEURONTIN, HCTZ, SYNTHROID, BENICAR, PRILOSEC, DALIRESP, AND CRESTOR WERE RESUMED. WE WILL REPEAT SERIAL CARDIAC ENZYMES AND EKGS. OTHERWISE, WE WILL FOLLOW-UP WITH AM LABS AND CHEST XRAY AND CONTINUE TO MONITOR. TIME SPENT ON CLINICAL ASSESSMENT, REVIEWING LABS AND IMAGING, DECISION MAKING, AND DOCUMENTATION GREATER THAN 75 MINUTES. - Past Medical History Past Medical History: Hypertension, Dyslipidemia, COPD - Past Surgical History Surgical History: Appendectomy, Hysterectomy - Family History Family Medical History: Hypertension - Social History Does patient currently use any type of tobacco product: No Have you used tobacco products in the last 12 months: No Type of Tobacco Use: None Does any household member use tobacco: No Alcohol Use: None Drug Use: None - Review of Systems Constitutional: Weakness Eyes: No Symptoms Reported ENT: No Symptoms Reported Respiratory: Cough, Shortness of Breath Cardiovascular: No Symptoms Reported Gastrointestinal: Abdominal Pain, Other (FLANK PAIN ) Genitourinary: No Symptoms Reported Musculoskeletal: No Symptoms Reported Skin: No Symptoms Reported Neurological: Weakness - Physical Exam Vital Signs: Vital Signs Temperature 99 F Temperature 98.0 F Temperature 98.2 F Pulse Rate 90 Pulse Rate 84 Pulse Rate 83 Pulse Rate 79 Pulse Rate 86 Pulse Rate 82 Pulse Rate 83 Respiratory Rate 20 Respiratory Rate 17 Respiratory Rate 17 Respiratory Rate 16 Respiratory Rate 18 Respiratory Rate 16 Respiratory Rate 16 Blood Pressure 128/90 Blood Pressure 134/63 Blood Pressure 166/70 Blood Pressure 163/70 Blood Pressure 160/67 Blood Pressure 174/77 O2 Sat by Pulse Oximetry 98 O2 Sat by Pulse Oximetry 98 O2 Sat by Pulse Oximetry 98 O2 Sat by Pulse Oximetry 97 O2 Sat by Pulse Oximetry 96 O2 Sat by Pulse Oximetry 98 O2 Sat by Pulse Oximetry 96 O2 Sat by Pulse Oximetry 96 Oriented: Normal Eyes: Normal Ear: Normal Nose: Normal Throat: Normal Respiratory: Wheezes Throughout Cardiovascular: Normal : Normal Auscultation: Bowel Sounds: Normal Palpation: Normal Tenderness: Normal Skin: Normal Musculoskeletal: Normal Psychiatric: Normal Mood Description: Calm Affect: Normal Speech Pattern: Clear - Assessment/Plan (1) Pneumonia Qualifiers: Pneumonia type: due to unspecified organism Laterality: unspecified laterality Lung location: unspecified part of lung Qualified Code(s): J18.9 - Pneumonia, unspecified organism Status: Acute Plan: ADMIT, SUPPLEMENTAL OXYGEN, LEVAQUIN 500MG IV DAILY, ZOSYN 3.375 IV TID, LOVENOX 40MG SC DAILY, ALBUTEROL NEBS Q6H, PULMICORT NEBS BID, POTASSIUM AND MAGNESIUM REPLACEMENT. HER HOME MEDICATIONS OF NORVASC, BUSPAR, ESTRACE, NEURONTIN, HCTZ, SYNTHROID, BENICAR, PRILOSEC, DALIRESP, AND CRESTOR WERE RESUMED. (2) Acute exacerbation of chronic obstructive pulmonary disease Status: Acute (3) Malignant hypertension Status: Acute (4) Dyslipidemia Status: Chronic (5) HTN (hypertension) Qualifiers: Hypertension type: primary hypertension Qualified Code(s): I10 - Essential (primary) hypertension Status: Chronic - Allergies Allergies/Adverse Reactions: Allergies Allergy/AdvReac Type Severity Reaction Status Date / Time latex Allergy Verified 04/18/23 08:29 - Medications Home Medications: Home Medications Medication Instructions Recorded Confirmed levothyroxine 25 mcg tablet 25 mcg PO DAILY 07/25/17 04/18/23 albuterol sulfate 90 mcg/actuation 90 mcg inhalation Q6H PRN 09/15/22 04/18/23 aerosol inhaler alendronate 70 mg tablet 70 mg PO QWEEK 09/15/22 04/18/23 amlodipine 5 mg tablet 5 mg PO QDAY 09/15/22 04/18/23 buspirone 15 mg tablet 15 mg PO BID 09/15/22 04/18/23 estradiol 2 mg tablet 2 mg PO QDAY 09/15/22 04/18/23 fluticasone fur. 100 mcg-umeclid 1 puff inhalation QDAY 09/15/22 04/18/23 62.5 mcg-vilant 25 mcg inhalat.powder (Trelegy Ellipta) gabapentin 800 mg tablet 800 mg PO QID 09/15/22 04/18/23 hydrochlorothiazide 12.5 mg capsule 12.5 mg PO QDAY 09/15/22 04/18/23 olmesartan 20 mg tablet 20 mg PO QDAY 09/15/22 04/18/23 omeprazole 40 mg capsule,delayed 40 mg PO BID 09/15/22 04/18/23 release rosuvastatin 20 mg tablet 20 mg PO QPM 09/15/22 04/18/23 levofloxacin 500 mg tablet 500 mg PO QDAY 04/18/23 04/18/23 methylprednisolone 4 mg tablets in See Rx Instructions .Route .COMPLEX 04/18/23 04/18/23 a dose pack roflumilast 500 mcg tablet 500 mcg PO QDAY 04/18/23 04/18/23
[2023-04-19] MEDS: CONSULT PHARMACY - POTASSIUM & MAGNESIUM XX SCH (18:52)
[2023-04-19] MEDS: Atrovent NEB TX 0.02% ONE (18:52)
[2023-04-19] MEDS: NS 1,000 ML IV 1,000 ML ONE (18:52)
[2023-04-20 05:28] LABS: BASOPHILS % (AUTO) 0.2 % (0.2-1.0); EOSINOPHILS # (AUTO) 0.2 x10^3/uL (0.0-0.2); EOSINOPHILS % (AUTO) 1.7 % (0.9-2.9); HEMATOCRIT 35.2 % (36.0-47.0); HEMOGLOBIN 11.8 g/dL (12.0-16.0); LYMPHOCYTES # (AUTO) 1.8 X10^3/uL (1.3-2.9); LYMPHOCYTES % (AUTO) 12.4 % (21.0-51.0); MEAN CORPUSCULAR HEMOGLOBIN 30.2 pg (27.0-34.0); MEAN CORPUSCULAR HGB CONC 33.4 g/dL (33.0-35.0); MEAN CORPUSCULAR VOLUME 90.3 fL (80.0-100.0); MEAN PLATELET VOLUME 7.7 fL (7.4-11.0); MONOCYTES # (AUTO) 0.6 x10^3/uL (0.3-0.8); NEUTROPHILS # (AUTO) 11.6 x10^3/uL (2.2-4.8); NEUTROPHILS % (AUTO) 81.7 % (42.0-75.0); PLATELET COUNT 320 X10^3/uL (150.0-450.0); RED CELL DISTRIBUTION WIDTH 12.9 % (11.6-16.5); WHITE BLOOD COUNT 14.1 X10^3/uL (3.6-10.0)
[2023-04-20 05:45] LABS: ALANINE AMINOTRANSFERASE 13 Units/L (12-78); ALBUMIN 2.6 g/dL (3.4-5.0); ALKALINE PHOSPHATASE 63 Units/L (46-116); ASPARTATE AMINO TRANSFERASE 10 Units/L (15-37); BLOOD UREA NITROGEN 13 mg/dL (7-18); CALCIUM 8.4 mg/dL (8.5-10.1); CARBON DIOXIDE 25.9 mmol/L (21-32); CHLORIDE 108 mmol/L (98-107); COR CA(FOR HYPOALB) 9.5 mg/dL (8.5-10.1); CREATININE 1.04 mg/dL (0.55-1.02); GLUCOSE 99 mg/dL (65-99); POTASSIUM 4.1 mmol/L (3.5-5.1); SODIUM 144 mmol/L (136-145); TOTAL PROTEIN 6.1 g/dL (6.4-8.2); eGFR NON BLACK RACES 53 (>60)
--- NOTE | 2023-04-20 07:28 | RAD ---
EXAM:CHEST, 1 VIEWHISTORY:SOB; COPD, HTN SX: APPY, AYSHA, CSECTION, HYSTCOMPARISON:04/19/2023.TECHNIQUE:AP view of the chestFINDINGS:The cardiac and mediastinal contours are normal in size. Limited evaluation of the lung in the left lung base. Otherwise no consolidation or segmental lung collapse. Lungs are hyperexpanded. No discernible pleural effusion or pneumothorax.IMPRESSION:Hyperexpanded lungs suggests COPD. If there is clinical need to evaluate for pulmonary nodules, CT chest is recommended.THIS IS AN ELECTRONICALLY VERIFIED FINAL REPORT04/20/2023 7:25 AM - Electronically signed by Preston Conn MD
[2023-04-20] MEDS: NEURONTIN CAP 100 MG PO SCH (08:36)
[2023-04-20] MEDS: LEVAQUIN PREMIX IV 250 MG 250 MG/50 ML BAG IV SCH (08:37)
[2023-04-20] MEDS ORDERED: CONSULT PHARMACY - POTASSIUM & MAGNESIUM XX SCH (14:00)
[2023-04-21 05:40] VITALS: RESP 20
[2023-04-21 06:00] LABS: BASOPHILS % (AUTO) 0.3 % (0.2-1.0); EOSINOPHILS # (AUTO) 0.3 x10^3/uL (0.0-0.2); HEMOGLOBIN 11.4 g/dL (12.0-16.0); LYMPHOCYTES # (AUTO) 1.7 X10^3/uL (1.3-2.9); LYMPHOCYTES % (AUTO) 13.4 % (21.0-51.0); MEAN CORPUSCULAR HEMOGLOBIN 30.3 pg (27.0-34.0); MEAN CORPUSCULAR HGB CONC 33.5 g/dL (33.0-35.0); MEAN CORPUSCULAR VOLUME 90.5 fL (80.0-100.0); MEAN PLATELET VOLUME 7.5 fL (7.4-11.0); MONOCYTES # (AUTO) 0.5 x10^3/uL (0.3-0.8); MONOCYTES % (AUTO) 3.8 % (0.0-13.0); NEUTROPHILS # (AUTO) 10.4 x10^3/uL (2.2-4.8); NEUTROPHILS % (AUTO) 80.5 % (42.0-75.0); PLATELET COUNT 301 X10^3/uL (150.0-450.0); RED BLOOD COUNT 3.76 X10^6/uL (3.5-5.4); RED CELL DISTRIBUTION WIDTH 13.6 % (11.6-16.5); WHITE BLOOD COUNT 12.9 X10^3/uL (3.6-10.0)
--- NOTE | 2023-04-21 06:06 | RAD ---
EXAM:CHEST, 1 VIEWHISTORY:SOB; HTN, COPD SX: HYST, APPY, AYSHA, CSECTIONCOMPARISON:04/20/2023FINDINGS:Th e cardiomediastinal silhouette is stable.No acute airspace disease. No pneumothorax or effusion.No acute osseous abnormality.IMPRESSION:No acute cardiopulmonary disease.THIS IS AN ELECTRONICALLY VERIFIED FINAL REPORT04/21/2023 6:03 AM - Electronically signed by Carlos Banks MD
[2023-04-21 06:17] LABS: ALANINE AMINOTRANSFERASE 13 Units/L (12-78); ALBUMIN 2.7 g/dL (3.4-5.0); ALKALINE PHOSPHATASE 62 Units/L (46-116); ASPARTATE AMINO TRANSFERASE 14 Units/L (15-37); BLOOD UREA NITROGEN 11 mg/dL (7-18); CALCIUM 8.4 mg/dL (8.5-10.1); CHLORIDE 108 mmol/L (98-107); COR CA(FOR HYPOALB) 9.4 mg/dL (8.5-10.1); CREATININE 1.09 mg/dL (0.55-1.02); GLUCOSE 108 mg/dL (65-99); POTASSIUM 3.7 mmol/L (3.5-5.1); SODIUM 144 mmol/L (136-145); TOTAL PROTEIN 6.2 g/dL (6.4-8.2); eGFR NON BLACK RACES 50 (>60)
[2023-04-21] MEDS ORDERED: CONSULT PHARMACY - POTASSIUM & MAGNESIUM XX SCH (07:00)
[2023-04-21] MEDS: K-DUR TAB 20 MEQ PO SCH (08:54)
[2023-04-21 09:40] VITALS: BP 156/70; PULSE 84; TEMP 98.5; O2SAT 96
--- NOTE | 2023-04-21 09:58 | PCM.PROG ---
Progress Note - Progress Note for Day of Date of Exam: 04/20/23 - Subjective Subjective: IS CURRENTLY INPATIENT STATUS FOR TREATMENT OF PNEUMONIA, COPD EXACERBATION, SHORTNESS OF BREATH, AND GENERALIZED WEAKNESS. TODAY, SHE IS ALERT AND ORIENTED, SITTING UP IN BED ON MORNING ROUNDS. SHE CONTINUES TO COMPLAIN OF COUGH AND SHORTNESS OF BREATH, BUT REPORTS SLIGHT IMPROVEMENT IN SYMPTOMS SINCE ADMISSION. COUGH HAS BEEN NON-PRODUCTIVE. ON EXAMINATION, HEART IS REGULAR IN RATE AND RHYTHM. BILATERAL LUNGS ARE NOTED WITH EXPIRATORY WHEEZING. ABDOMEN IS ROUND, SOFT, AND NON-TENDER WITH NORMAL BOWEL SOUNDS NOTED IN ALL QUADRANTS. GOOD RANGE OF MOTION NOTED TO UPPER AND LOWER EXTREMITIES WITH NO EDEMA NOTED. HER VITALS THIS MORNING ARE: 98.1-89-27-94%-131/67. SHE IS ON ROOM AIR. LABS WERE OBTAINED. WBC 14.1, RBC 3.90, HGB 11.8, HCT 35.2, PLT COUNT 320, SODIUM 144, POTASSIUM 4.1, CHLORIDE 108, BUN 13, CREATININE 1.04, GLUCOSE 99, CALCIUM 8.4, TOTAL BILI 0.70, AST 10, ALT 13, ALK PHOS 63, TOTAL PROTEIN 6.1, ALBUMIN 2.6. BLOOD CULTURES ARE PENDING. CHEST XRAY WAS OBTAINED AND REVEALED: Hyperexpanded lungs suggests COPD. SHE IS CURRENTLY RECEIVING LEVAQUIN 500MG IV DAILY, ZOSYN 3.375 IV TID, LOVENOX 40MG SC DAILY, ALBUTEROL NEBS Q6H, PULMICORT NEBS BID, POTASSIUM AND MAGNESIUM REPLACEMENT. HER HOME MEDICATIONS OF NORVASC, BUSPAR, ESTRACE, NEURONTIN, HCTZ, SYNTHROID, BENICAR, PRILOSEC, DALIRESP, AND CRESTOR WERE RESUMED. WE WILL CONTINUE WITH CURRENT PLAN OF CARE TODAY. OTHERWISE, WE WILL FOLLOW-UP WITH AM LABS AND CHEST XRAY AND CONTINUE TO MONITOR. TIME SPENT ON CLINICAL ASSESSMENT, REVIEWING LABS AND IMAGING, DECISION MAKING, AND DOCUMENTATION GREATER THAN 45 MINUTES. - Past Medical Family Social History Past Med/Fam/Surg Hx: No changes since H&P Allergies: Allergies latex Allergy (Verified 04/18/23 08:29) - Review of Systems ROS: No change since H&P - Vital Signs and I&O's Vital Signs: Vital Signs Temperature 98.5 F Temperature 98.1 F Pulse Rate [Right] 84 Pulse Rate [Right] 79 Respiratory Rate 20 Respiratory Rate 20 Blood Pressure [Right Arm] 156/70 Blood Pressure [Right Arm] 154/83 O2 Sat by Pulse Oximetry 96 O2 Sat by Pulse Oximetry 98 Intake and Output: Intake & Output 04/18/23 04/19/23 04/20/23 04/21/23 11:59 11:59 11:59 11:59 Intake Total 1210 / 1210 2319 / 2319 1058 / 1058 Output Total 150 / 150 Balance 1210 / 1210 2169 / 2169 1058 / 1058 - Physical Exam Oriented: Normal Eyes: Normal Ear: Normal Nose: Normal Throat: Normal Respiratory: Generalized, Wheezes Cardiovascular: Normal : Normal Auscultation: Bowel Sounds: Normal Palpation: Normal Tenderness: Normal Skin: Normal Musculoskeletal: Normal Psychiatric: Normal Mood Description: Calm Affect: Normal Speech Pattern: Clear, Appropriate - Laboratory and Diagnostics Result Diagrams: 04/21/23 05:41 04/21/23 05:41 Labs: 04/18/23 08:45 Blood Blood Culture - Preliminary 04/18/23 08:35 Blood Blood Culture - Preliminary Laboratory WBC 12.9 X10^3/uL (3.6-10.0) H 04/21/23 05:41 RBC 3.76 X10^6/uL (3.5-5.4) 04/21/23 05:41 Hgb 11.4 g/dL (12.0-16.0) L 04/21/23 05:41 Hct 34.0 % (36.0-47.0) L 04/21/23 05:41 MCV 90.5 fL (80.0-100.0) 04/21/23 05:41 MCH 30.3 pg (27.0-34.0) 04/21/23 05:41 MCHC 33.5 g/dL (33.0-35.0) 04/21/23 05:41 RDW 13.6 % (11.6-16.5) 04/21/23 05:41 Plt Count 301 X10^3/uL (150.0-450.0) 04/21/23 05:41 Plt Count Comment Adequate (ADEQUATE) 04/18/23 08:35 MPV 7.5 fL (7.4-11.0) 04/21/23 05:41 Neut % (Auto) 80.5 % (42.0-75.0) H 04/21/23 05:41 Lymph % (Auto) 13.4 % (21.0-51.0) L 04/21/23 05:41 [place] % (Auto) 3.8 % (0.0-13.0) 04/21/23 05:41 Eos % (Auto) 2.0 % (0.9-2.9) 04/21/23 05:41 Baso % (Auto) 0.3 % (0.2-1.0) 04/21/23 05:41 Neut # (Auto) 10.4 x10^3/uL (2.2-4.8) H 04/21/23 05:41 Lymph # (Auto) 1.7 X10^3/uL (1.3-2.9) 04/21/23 05:41 [place] # (Auto) 0.5 x10^3/uL (0.3-0.8) 04/21/23 05:41 Eos # (Auto) 0.3 x10^3/uL (0.0-0.2) H 04/21/23 05:41 Baso # (Auto) 0.0 X10^3/uL (0.0-0.1) 04/21/23 05:41 Absolute Nucleated RBC 0.0 /100WBC 04/21/23 05:41 Total Counted 100 04/18/23 08:35 Neutrophils % (Manual) 80 % (39-76) H 04/18/23 08:35 Lymphocytes % (Manual) 17 % (13-43) 04/18/23 08:35 Monocytes % (Manual) 3 % (4-9) L 04/18/23 08:35 Plt Morphology Comment Normal (NORMAL) 04/18/23 08:35 RBC Morphology Normal (NORMAL) 04/18/23 08:35 D-Dimer 2.46 ug/ml (0.0-0.57) H 04/18/23 08:35 Sodium 144 mmol/L (136-145) 04/21/23 05:41 Corrected Sodium TNP 04/21/23 05:41 Potassium 3.7 mmol/L (3.5-5.1) 04/21/23 05:41 Chloride 108 mmol/L (98-107) H 04/21/23 05:41 Carbon Dioxide 24.0 mmol/L (21-32) 04/21/23 05:41 BUN 11 mg/dL (7-18) 04/21/23 05:41 Creatinine 1.09 mg/dL (0.55-1.02) H 04/21/23 05:41 Est GFR (MDRD) Af Amer > 60 (>60) 04/21/23 05:41 Est GFR (MDRD) Non-Af 50 (>60) L 04/21/23 05:41 Glucose 108 mg/dL (65-99) H 04/21/23 05:41 Lactic Acid 1.7 mmol/L (0.4-2.0) 04/18/23 08:35 Calcium 8.4 mg/dL (8.5-10.1) L 04/21/23 05:41 Corrected Calcium 9.4 mg/dL (8.5-10.1) 04/21/23 05:41 Magnesium 1.9 mg/dL (2.0-2.9) L 04/21/23 05:41 Total Bilirubin 0.60 mg/dL (0.2-1.0) 04/21/23 05:41 AST 14 Units/L (15-37) L 04/21/23 05:41 ALT 13 Units/L (12-78) 04/21/23 05:41 Alkaline Phosphatase 62 Units/L (46-116) 04/21/23 05:41 Creatine Kinase 76 Units/L (26-192) 04/18/23 08:35 Troponin I High Sens 72.1 ng/L (4.0-60.0) H* 04/18/23 22:45 C-Reactive Protein 5.30 mg/L (0-3.0) H 04/18/23 08:35 B-Natriuretic Peptide 400 pg/mL (0-79) H 04/18/23 08:35 Total Protein 6.2 g/dL (6.4-8.2) L 04/21/23 05:41 Albumin 2.7 g/dL (3.4-5.0) L 04/21/23 05:41 Globulin 3.5 g/dL (2.5-4.5) 04/21/23 05:41 Albumin/Globulin Ratio 0.8 Ratio (1.1-2.1) L 04/21/23 05:41 Free T4 1.13 ng/dL (0.76-1.46) 04/18/23 08:35 TSH 3rd Generation 0.642 uIU/mL (0.358-3.74) 04/18/23 08:35 Specimen Type Clean catch urine 04/18/23 09:15 Urine Color [place] (YELLOW) 04/18/23 09:15 Urine Appearance Clear (CLEAR) 04/18/23 09:15 Urine pH Cancelled 04/18/23 09:15 Ur Specific [place] Cancelled 04/18/23 09:15 Urine Protein Cancelled 04/18/23 09:15 Urine Glucose (UA) Cancelled 04/18/23 09:15 Urine Ketones Cancelled 04/18/23 09:15 Urine Blood Cancelled 04/18/23 09:15 Urine Nitrite Cancelled 04/18/23 09:15 Urine Bilirubin Cancelled 04/18/23 09:15 Urine Urobilinogen Cancelled 04/18/23 09:15 Ur Leukocyte Esterase Cancelled 04/18/23 09:15 Urine RBC 0-2 /HPF (0-3) 04/18/23 09:15 Urine WBC 3-5 /HPF (0-5) 04/18/23 09:15 Ur Squamous Epith Cells Few /HPF (NEGATIVE) 04/18/23 09:15 Amorphous Sediment 1+ /HPF (NEGATIVE) 04/18/23 09:15 Urine Bacteria 1+ /HPF (NEGATIVE) 04/18/23 09:15 Urine Mucus Rare /HPF (NEGATIVE) 04/18/23 09:15 Ur Culture Indicated? No/not indicated 04/18/23 09:15 SARS-CoV-2 (PCR) Negative (NEGATIVE) 04/18/23 08:29 Influenza Type A (PCR) Negative (NEGATIVE) 04/18/23 08:29 Influenza Type B (PCR) Negative (NEGATIVE) 04/18/23 08:29 RSV (PCR) Negative (NEGATIVE) 04/18/23 08:29 Resp Viral Panel (PCR) See scanned report 04/18/23 17:32 - Plan (1) Pneumonia Status: Acute Qualifiers: Pneumonia type: due to unspecified organism Laterality: unspecified laterality Lung location: unspecified part of lung Qualified Code(s): J18.9 - Pneumonia, unspecified organism Plan: SUPPLEMENTAL OXYGEN, LEVAQUIN 500MG IV DAILY, ZOSYN 3.375 IV TID, LOVENOX 40MG SC DAILY, ALBUTEROL NEBS Q6H, PULMICORT NEBS BID, POTASSIUM AND MAGNESIUM REPLACEMENT. HER HOME MEDICATIONS OF NORVASC, BUSPAR, ESTRACE, NEURONTIN, HCTZ, SYNTHROID, BENICAR, PRILOSEC, DALIRESP, AND CRESTOR WERE RESUMED. (2) Acute exacerbation of chronic obstructive pulmonary disease Status: Acute (3) Generalized weakness Status: Acute (4) Shortness of breath Status: Acute (5) Dyslipidemia Status: Chronic (6) HTN (hypertension) Status: Chronic Qualifiers: Hypertension type: primary hypertension Qualified Code(s): I10 - Essential (primary) hypertension
== END 2023-04-21 11:01 | disposition home or self-care (01) | DRG 190 ==
LOC: ICU 07:56 → ER 07:56 → OBSVTOIN 15:59 → ICU 16:36 → MED/SURG 04-20 16:19
PROVIDERS: ADMIT Internal Medicine; ATTEND Internal Medicine
DX: B97.19 Other enterovirus as the cause of diseases classified elsewhere; I48.91 Unspecified atrial fibrillation; J44.1 Chronic obstructive pulmonary disease with (acute) exacerbation; R06.02 Shortness of breath; R53.1 Weakness; R79.1 Abnormal coagulation profile; R79.82 Elevated C-reactive protein (CRP); E87.6 Hypokalemia; E78.2 Mixed hyperlipidemia; R00.0 Tachycardia, unspecified; E83.42 Hypomagnesemia; I10 Essential (primary) hypertension; Z20.822 Contact with and (suspected) exposure to COVID-19; R77.8 Other specified abnormalities of plasma proteins; J18.8 Other pneumonia, unspecified organism